=== PATIENT | female | born 1965 ===

== ENCOUNTER 2018-01-20 07:34 | Outpatient (CLI) | payer OTHER ==
[~2018-01-20] VITALS: Ht 152.4 cm; Wt 67.1 kg
== END 2018-01-20 07:45 | disposition home or self-care (01) ==
LOC: OFIC 805 07:34
DX: H69.83 Other specified disorders of Eustachian tube, bilateral (principal); J31.0 Chronic rhinitis; H61.23 Impacted cerumen, bilateral; H93.13 Tinnitus, bilateral